=== PATIENT | male | born 1990 | race Caucasian/White ===

== ENCOUNTER → 2018-07-22 | Outpatient (REF) | payer OTHER ==
[2018-07-22 21:52] LABS: CHLAMYDIA DNA AMPLIFICATION POSITIVE (NEGATIVE); GC DNA AMPLIFICATION NEGATIVE (NEGATIVE)
== END ==
LOC: M SFHCLERA 11:53
DX: Z20.2 Contact with and (suspected) exposure to infections with a predominantly sexual mode of transmission (principal); R30.0 Dysuria
CPT/HCPCS: 87086

== ENCOUNTER → 2020-03-23 | Outpatient (CLI) | payer OTHER ==
--- NOTE | 2020-03-23 16:16 | REP ---
DIGITAL DIAGNOSTIC BILATERAL MAMMOGRAPHY WITH CAD, 3D TOMOGRAPHY, AND FOCUSED BILATERAL SUBAREOLAR SONOGRAPHY. HISTORY: Male patient with bilateral painful swelling since May 2019. Mastodynia. Gynecomastia. MAMMOGRAPHIC FINDINGS: There is a bilateral symmetric pattern of subareolar breast parenchymal density, consistent with gynecomastia. There is no evidence of mass on either side. No architectural distortion, dominant density, adenopathy, or architectural distortion. No microcalcification is seen. SONOGRAPHIC FINDINGS: Focused bilateral subareolar sonography demonstrates somewhat heterogeneous breast parenchymal tissue in the subareolar region in a pattern which is symmetric and consistent with gynecomastia. IMPRESSION: BIRADS 2: BI-RADS/ACR category 2 mammogram. Benign Findings. BI-RADS category 2 benign findings. Gynecomastia pattern bilaterally and symmetric. Clinical followup is advised. This mammogram was interpreted with the aid of an FDA-approved computer-aided detection system. The patient states she had a clinical breast exam in February 2020 The patient letter being requested is M#[id number] male patient. Electronically Signed by Danny Norris MD 03/23/2020 05:10 P
== END ==
LOC: M WHC 13:46
PROVIDERS: ATTEND Surgery
DX: N64.4 Mastodynia (principal); N62 Hypertrophy of breast
CPT/HCPCS: 76642; 77065; G0279